=== PATIENT | female | born 1975 | race American Indian/Alaskan Native ===

== ENCOUNTER 2018-12-22 11:41 | Day surgery (SDC) | payer OTHER ==
[~2018-12-22 11:41] MED LIST: BUPIVACAINE-EPINEPHRINE/PF 0.25%-1:200,000 (10 ML) VIAL INFILTRATI ONE; LIDOCAINE (1%) 10 MG/1 ML VIAL 20 ML MDV INFILTRATI ONE
[2018-12-22] MEDS ORDERED: LACTATED RINGERS 1,000 ML ONE (12:27)
[2018-12-22] MEDS ORDERED: LACTATED RINGERS 1,000 ML IV SCH (13:00)
[2018-12-22] MEDS ORDERED: fentaNYL 100 MCG/2 ML INJ IV PRN (13:23)
[2018-12-22] MEDS ORDERED: ONDANSETRON 4 MG/2 ML INJ IV PRN (13:23)
--- NOTE | 2018-12-22 13:24 | Anesthesia Day of Surgery ---
Anesthesia Day of Surgery - Day of Surgery Patient Examined: Yes Patient H&P Reviewed: Yes Patient is NPO: Yes
--- NOTE | 2018-12-22 13:31 | Anesthesia Consultation ---
Anesthesia Consult and Med Hx Date of service: 12/22/18 - Airway Anesthetic Teeth Evaluation: Good ROM Head & Neck: Adequate Mental/Hyoid Distance: Adequate Mallampati Class: Class II Intubation Access Assessment: Probably Good - Pre-Operative Health Status ASA Pre-Surgery Classification: ASA2 Proposed Anesthetic Plan: General, MAC (MAC; GA if needed) - Central Nervous System Hx Back Pain: Yes (LOWER) Hx Psychiatric Problems: Yes (Anxiety) - Other Systems Hx Alcohol Use: Yes ([place] WINE) Hx Substance Use: No Hx Cancer: No
[2018-12-22] MEDS ORDERED: LIDOCAINE (1%) 10 MG/1 ML VIAL 20 ML MDV ONE (13:58)
[2018-12-22] MEDS ORDERED: BUPIVACAINE/PF (0.25%) 2.5 MG/ML 30 ML VIAL INFILTRATI ONE (13:58)
[2018-12-22] MEDS ORDERED: fentaNYL 100 MCG/2 ML INJ ONE (14:00)
[2018-12-22] MEDS ORDERED: PROPOFOL 200 MG/20 ML VIAL IV ONE (14:00)
[2018-12-22] MEDS ORDERED: MIDAZOLAM 2 MG/2 ML INJ IV NR (14:00)
[2018-12-22] MEDS ORDERED: CLINDAMYCIN 600 MG/50 mL 600 MG/50 ML BAG IV NR (14:00)
[2018-12-22] MEDS ORDERED: KETAMINE/STERILE WATER 50 MG/ML SYRINGE ONE (14:23)
--- NOTE | 2018-12-22 14:45 | Short Stay Summary ---
Short Stay Documentation Date of service: 12/22/18 - History Principal diagnosis: right shoulder soft tissue mass - Allergies and Medications Current Medications: Allergies Penicillins Allergy (Verified 12/21/18 12:48) Hives Home Medications Medication Instructions Recorded Confirmed Last Taken Type Ergocalciferol [Vitamin D2] 1 cap PO QWEEK 12/21/18 12/21/18 Unknown History Active Medications Fentanyl (Sublimaze) 50 mcg IV Q5MIN PRN PRN Reason: Pain , Severe (7-10) Lactated Ringer's (Lactated Ringers) 1,000 mls @ 75 mls/hr IV DIRECT ELENI Last Admin: 12/22/18 13:45 Dose: 75 mls/hr Documented by: Clindamycin HCl (Cleocin 600 Mg/50 Ml) 600 mg in 50 mls @ 100 mls/hr IV PREOP NR; Protocol Stop: 12/22/18 23:59 Midazolam HCl (Versed) 2 mg IV PREOP NR Stop: 12/22/18 23:59 Last Admin: 12/22/18 13:58 Dose: 2 mg Documented by: Ondansetron HCl (Zofran) 4 mg IV ONCE PRN PRN Reason: Nausea And Vomiting - Brief post op/procedure progress note Date of procedure: 12/22/18 Pre-op diagnosis: right shoulder soft tissue mass Post-op diagnosis: same Procedure: excision right shoulder soft tissue mass Anesthesia: MAC, local Findings: 4cm soft tissue mass consistent with lipoma Surgeon: RALPH NICKERSON Estimated blood loss: minimal Pathology: list (soft tissue mass right shoulder) Specimen disposition: to lab Condition: stable - Hospital course Hospital course: Pt observed in PACU and discharged to home in stable condition when criteria met. - Disposition Condition at discharge: Good Short Stay Discharge Plan Activity: no restrictions Diet: regular Wound: per your surgeon's advice Additional Instructions: SEE PRINTED DISCHARGE INSTRUCTIONS. Follow up with: [facility] [Primary Care Provider] - 7 Days RALPH NICKERSON DO [Staff Physician] - 14 Days
[2018-12-22 15:38] VITALS: BP 120/62
--- NOTE | 2018-12-22 17:54 | Post Anesthesia Evaluation ---
- Post Anesthesia Evaluation Patient Participated: Yes Airway Patent: Yes Stable Respiratory Function: Yes Nausea/Vomiting: No Temp > 96.8F: Yes Pain Manageable: Yes Adequeate Hydration: Yes Anesthesia Complications: No Block Receding Appropriately: Not Applicable Patient on Ventilator: No
--- NOTE | 2018-12-25 10:12 | Operative Report ---
Operative Report Operative Report: Date of procedure: 12/22/18 Pre-op diagnosis: right shoulder soft tissue mass Post-op diagnosis: same Procedure: excision right shoulder soft tissue mass Anesthesia: MAC, local Findings: 4cm soft tissue mass consistent with lipoma Surgeon: RALPH NICKERSON Estimated blood loss: minimal Pathology: list (soft tissue mass right shoulder) Specimen disposition: to lab Condition: stable - Hospital course Hospital course: Pt observed in PACU and discharged to home in stable condition when criteria met. HPI an indication: Patient is a 43-year-old female presented to the surgery clinic for evaluation of a soft tissue mass of her right shoulder. The patient reported discomfort in the area of the mass and therefore it was recommended that it be removed. All risks, benefits, alternatives to surgery were discussed with the patient and questions answered. Consent was obtained. Procedure in detail: Patient was identified in the preoperative area, taken back to the operating room and placed on the operating room table in supine position. After anesthesia was induced the right arm was tucked with all bony prominences padded appropriately. The right shoulder was prepped and draped in the usual sterile fashion and a timeout performed. Local anesthetic was infiltrated in the skin at the intended incision site. A 3 cm incision was made over the mass using a 15 blade. Dissection was carried down through the skin and subcutaneous tissue using electrocautery until the mass was identified. The fatty mass was then circumferentially dissected from the surrounding and underlying tissue using a hemostat and electrocautery. Once the mass was from the surrounding structures it was transected off the base using electrocautery. The mass measured 4 centimeters, was lobulated and consistent with a lipoma. The wound was then irrigated and hemostasis ensured. The deep dermal layer was closed using interrupted 3-0 Vicryl suture. The skin incision was closed with 4-0 Monocryl subcuticular running stitch and skin glue. Once the glue had dried a fluff gauze was placed over the incision and secured using Elastoplast tape for compression. At the end of the case, all sponge, instrument, sharp counts were correct 2. The patient was awoken from anesthesia and taken to PACU in stable condition.
== END 2018-12-22 11:42 | disposition home or self-care (01) ==
LOC: OR 11:41
PROVIDERS: ATTEND Surgery
DX: R22.31 Localized swelling, mass and lump, right upper limb (principal); D17.21 Benign lipomatous neoplasm of skin and subcutaneous tissue of right arm; F41.9 Anxiety disorder, unspecified; Z79.899 Other long term (current) drug therapy; Z88.0 Allergy status to penicillin; Z98.891 History of uterine scar from previous surgery; Z72.89 Other problems related to lifestyle; Z98.890 Other specified postprocedural states; Z80.8 Family history of malignant neoplasm of other organs or systems
CPT/HCPCS: 23071; 81025; 88304; J2250; J2704; J3010; J7120; 88307